=== PATIENT | male | born 1950 | race Caucasian/White ===

== ENCOUNTER 2020-08-10 08:02 | Observation (INO) ==
--- NOTE | 2020-07-17 15:24 | PAT Medication Instructions ---
Medication Instructions Date of Service July 17, 2020 Home Medications Medication Instructions Recorded Walking Cane #1 ea 06/25/20 Wheeled Walker #1 ea 06/25/20 Sweeteze 1 cap PO BID ascorbic acid (vitamin C) [Vitamin C] 500 mg PO DAILY cholecalciferol (vitamin D3) Vitamin D3 125 mcg PO DAILY fexofenadine/Brii 180 mg PO QAM glucosamine-chondroitin/Osteo Bi-Flex 1 tab PO BID lactobacillus combination no.4/Probiotic 3,000 mmu cells PO DAILY multivit with min-folic acid/Centrum Adult 50 Fresh-Fruity 1 tab PO DAILY naproxen sodium/Aleve 220 mg PO BID omega-3 fatty acids /Fish Oil 1,000 mg PO DAILY psyllium husk /Metamucil 1 tbsp PO QAM ASK your surgeon for instructions naproxen sodium/Aleve 220 mg PO BID STOP taking 2 weeks before surgery (or as soon as possible if surgery is within 2 weeks) Sweeteze 1 cap PO BID glucosamine-chondroitin/Osteo Bi-Flex 1 tab PO BID omega-3 fatty acids /Fish Oil 1,000 mg PO DAILY DO NOT take the morning of surgery ascorbic acid (vitamin C) [Vitamin C] 500 mg PO DAILY cholecalciferol (vitamin D3) Vitamin D3 125 mcg PO DAILY fexofenadine/Brii 180 mg PO QAM lactobacillus combination no.4/Probiotic 3,000 mmu cells PO DAILY multivit with min-folic acid/Centrum Adult 50 Fresh-Fruity 1 tab PO DAILY psyllium husk /Metamucil 1 tbsp PO QAM Other Notes If you have any questions please call us at [phone] or [phone] or [phone] or [phone]
--- NOTE | 2020-07-21 11:45 | Anesthesiology Consultation ---
Date of Service July 21, 2020 Assessment & Plan (1) Encounter for pre-operative examination: COVID screening: Per assessment on 07/21: Travel screen negative x 1 month. No known COVID-19 positive contacts or current COVID-19 related symptoms. Surgeon arranging preop COVID testing. Awaiting results. Chart Review Chart Review: Acceptable Risk for Surgery (evaluation AM DOS) and Patient seen in Pre Admission Testing Teaching & Discussion Pre-Anesthesia Teaching/Discussion Notes: Instructed NPO after midnight before surgery,except medications with 15 cc of water. Medication instructions provided according to the PAT guidelines. History Surgery Operation Date: 08/10/20 09:20 Proposed Procedures p Right Total Knee Arthroplasty - Malik Maxwell DO Height/Weight Height: 5 ft 11 in Weight: 111.3 kg Allergies Allergy/AdvReac Type Severity Reaction Status Date / Time No Known Allergies Allergy Verified 06/23/20 13:37 Medications Home Medications Medication Instructions Recorded Confirmed Last Taken Sweeteze 1 cap PO BID 06/23/20 06/23/20 Unknown ascorbic acid (vitamin C) [Vitamin 500 mg PO DAILY 06/23/20 06/23/20 Unknown C] cholecalciferol (vitamin D3) 125 mcg PO DAILY 06/23/20 06/23/20 Unknown [Vitamin D3] fexofenadine [Brii] 180 mg PO QAM 06/23/20 06/23/20 Unknown glucosamine-chondroitin [Osteo 1 tab PO BID 06/23/20 06/23/20 Unknown Bi-Flex] lactobacillus combination no.4 3,000 mmu cells PO DAILY 06/23/20 06/23/20 Unknown [Probiotic] multivit with min-folic acid 1 tab PO DAILY 06/23/20 06/23/20 Unknown [Centrum Adult 50 Fresh-Fruity] naproxen sodium [Aleve] 220 mg PO BID 06/23/20 06/23/20 Unknown omega-3 fatty acids [Fish Oil] 1,000 mg PO DAILY 06/23/20 06/23/20 Unknown psyllium husk [Metamucil] 1 tbsp PO QAM 06/23/20 06/23/20 Unknown Walking Cane #1 ea 06/25/20 Unknown Wheeled Walker #1 ea 06/25/20 Unknown Past Medical History Medical History Eczema Obesity Osteoarthritis Exercise / Class Metabolic Activity II 4-5 Yardwork/Stairs/Walk up hill Past Family History Family History Father Family hx of colon cancer Other Colorectal cancer No family history of adverse response to anesthesia Past Surgical History Surgical History History of arthroscopy Right knee History of colonoscopy [place] teeth removed Past Anesthesia History No Hx of Anesthesia Complications and No Family Hx of Anesthesia Complications History of PONV No Hx of PONV and Hx of Motion Sickness (remote hx (+ boats)) Social History Smoking Status: Never smoker Do You Dip or Chew Tobacco: No Hx Alcohol Use: No Hx Substance Use: No Review of Systems Patient denies chest pain, shortness of breath, dyspnea on exertion, fever, chills, cough, wheezing, palpitations. Physical Exam Vital Signs VITALS BP 179/109 > 158/94 on manual recheck Advised patient to have PCP/patient continue to monitor BPs. BPs high 120s-150s/80-90s per review of PCP records P 72 TEMP 99.0 SP02 95%RA RESP 18 PHYSICAL Full cervical extension range of motion. Full TMJ range of motion. TMD 3.5 finger breaths Mallampati Score 3 Dentition: missing molar Lungs: clear throughout to auscultation Cardiac: regular rate and rhythm, no murmurs noted Spine: normal Carotid arteries: negative bruit Extremities: no edema Testing Laboratory Results 07/21/20 12:28 07/21/20 12:28 PT 10.0 Seconds (9.0-12.0) 07/21/20 12:28 INR 1.0 (0.9-1.1) 07/21/20 12:28 APTT 25.7 Seconds (21.0-31.0) 07/21/20 12:28 Blood Type B Positive 07/21/20 12:28 Antibody Screen NEGATIVE 07/21/20 12:28 Electrocardiogram Date: 07/21/20 Normal sinus rhythm at 60 bpm. Incomplete right bundle branch block. Left anterior fascicular block. Reviewed PMHX, functional status, preop EKG with Dr Pal > he does not feel further cardiac evaluation and/or testing needed prior to surgery from his perspective. Chest X-Ray Date: 07/21/20 FINDINGS: Cardiac silhouette is mildly enlarged. No pneumothorax, pleural effusion, airspace consolidation or overt pulmonary edema. Bones of the chest appear grossly intact. IMPRESSION: No acute process.
[2020-07-21 12:53] LABS: Basophils # (auto) 0.03 K/uL (0-0.2); Basophils % (auto) 0.5 %; Eosinophils % (auto) 1.8 %; Hematocrit (blood only) 44.3 % (42-52); Hemoglobin 16.4 g/dL (14.0-18.0); Immature Granulocytes # (auto) 0.02 K/uL (0.00-0.02); Immature Granulocytes % (auto) 0.4 %; Lymphocytes # (auto) 1.43 K/uL (1.2-3.4); Lymphocytes % (auto) 25.1 %; Mean Corpuscular Hemoglobin 31.6 pg (25-34); Mean Corpuscular Volume 85.4 fL (80-100); Mean Platelet Volume 10.4 fL (7.4-10.4); Monocytes # (auto) 0.33 K/uL (0.11-0.59); Monocytes % (auto) 5.8 %; Neutrophils # (auto) 3.79 K/uL (1.4-6.5); Neutrophils % (auto) 66.4 %; Platelet Count 198 K/uL (130-400); RDW Coefficient of Variation 12.3 % (11.5-14.5); RDW Standard Deviation 38.7 fL (36.4-46.3); Red Blood Count 5.19 M/uL (4.7-6.1)
--- NOTE | 2020-07-21 12:54 | XRay Report ---
XR chest Pre-admission PA/Lat HISTORY: 70 years-old Male pat chronic degenerative joint disease COMPARISON: None TECHNIQUE: PA and lateral views of the chest FINDINGS: Cardiac silhouette is mildly enlarged. No pneumothorax, pleural effusion, airspace consolidation or o vert pulmonary edema. Bones of the chest appear grossly intact. IMPRESSION: No acute process. ACT 112: Negative or not required by law. The above report was generated using voice recognition software. It may contain grammatical, syntax o r spelling errors. Electronically signed by: José Miguel Garcia M.D. 07/21/2020 12:53 PM
[2020-07-21 13:07] LABS: Partial Thromboplastin Time 25.7 Seconds (21.0-31.0)
[2020-07-21 16:26] LABS: BUN Creatinine Ratio 16.6 (10-20); Calcium 9.5 mg/dl (8.5-10.1); Creatinine Clr Calc Pharmacy 84.6 ml/min; Est GFR (African American) 83.2; Est GFR (Non-African American) 71.8; Potassium 4.1 mmol/L (3.5-5.1)
--- NOTE | 2020-07-22 06:44 | Electrocardiogram Report ---
Test Reason : Blood Pressure : / mmHG Vent. Rate : 060 BPM Atrial Rate : 060 BPM P-R Int : 122 ms QRS Dur : 092 ms QT Int : 414 ms P-R-T Axes : 068 -61 051 degrees QTc Int : 414 ms Normal sinus rhythm Incomplete right bundle branch block Left anterior fascicular block Abnormal ECG No previous ECGs available Confirmed by Floyd Birmingham ([id number]) on 07/22/2020 6:44:01 AM Referred By: Malik Maxwell Confirmed By:Floyd Birmingham
--- NOTE | 2020-08-10 06:40 | History & Physical Report ---
Date of Service August 10, 2020 Assessment & Plan (1) Osteoarthritis of right knee: We will proceed with a right total knee arthroplasty. Postoperatively he will be started on aspirin for DVT prophylaxis and kept overnight in the hospital for postoperative medical management. He plans to use home health upon discharge. History of Present Illness Chief Complaint: Osteoarthritis of the right knee. Primary Care Provider: Rob Garcia MD Bryon is a pleasant 70-year-old male who is been dealing with chronic increasing right knee pain. He has a history of a right knee arthroscopy done about 20 years ago. X-rays and clinical examination have been diagnostic for advanced osteoarthritis of the right knee. After failing conservative treatme nt, he has elected to proceed with a right total knee arthroplasty.. Allergies Allergy/AdvReac Type Severity Reaction Status Date / Time No Known Allergies Allergy Verified 06/23/20 13:37 Home Medications Medication Instructions Recorded Confirmed Type Sweeteze 1 cap PO BID 06/23/20 06/23/20 History ascorbic acid (vitamin C) [Vitamin 500 mg PO DAILY 06/23/20 06/23/20 History C] cholecalciferol (vitamin D3) 125 mcg PO DAILY 06/23/20 06/23/20 History [Vitamin D3] fexofenadine [Brii] 180 mg PO QAM 06/23/20 06/23/20 History glucosamine-chondroitin [Osteo 1 tab PO BID 06/23/20 06/23/20 History Bi-Flex] lactobacillus combination no.4 3,000 mmu cells PO DAILY 06/23/20 06/23/20 History [Probiotic] multivit with min-folic acid 1 tab PO DAILY 06/23/20 06/23/20 History [Centrum Adult 50 Fresh-Fruity] naproxen sodium [Aleve] 220 mg PO BID 06/23/20 06/23/20 History omega-3 fatty acids [Fish Oil] 1,000 mg PO DAILY 06/23/20 06/23/20 History psyllium husk [Metamucil] 1 tbsp PO QAM 06/23/20 06/23/20 History Walking Cane #1 ea 06/25/20 Rx Wheeled Walker #1 ea 06/25/20 Rx Past Med/Surg History Medical History Eczema Obesity Osteoarthritis Surgical History History of arthroscopy Right knee History of colonoscopy [place] teeth removed Family History Father Family hx of colon cancer Other Colorectal cancer No family history of adverse response to anesthesia Social History Smoking Status: Never smoker Second Hand Exposure: No; Do You Dip or Chew Tobacco: No; Hx Alcohol Use: No Hx Substance Use: No Preferred Language: [place] Required: No Beliefs That Will Affect Care: None Current Living Situation: Spouse Feels Safe at Home: Yes Safety Concerns: Feels Safe At This Time Assistive Devices: Glasses Review of Systems All systems reviewed & are unremarkable except as noted in HPI & below. Physical Exam On physical examination of the right knee, he ambulates independently. He has good motion of 0 to 120 degrees. He has no instability. He has pain over the distal medial femoral condyle and over the medial joint line.. Constitutional WD/WN, vitals as above Eyes PERRL, conjunctivae normal, anicteric sclerae ENMT external ear and nose normal, oropharynx normal Neck trachea midline, no thyromegaly Respiratory normal respiratory effort Cardiovascular RRR, no murmur, no edema Gastrointestinal (Abdomen) normal bowel sounds, soft, nontender, no hepatosplenomegaly Psychiatric A+Ox3, euthymic affect Results & Data Results & Data Laboratory Results . Diagnostic Findings X-rays of the right knee do show advanced osteoarthritis with joint space narrowing, osteophyte formation, and [id number] articulation. PG Care Time/CCT Total # of Minutes Spent Total Time Spent with Patient: Total time spent is greater than 50% in coordination of care (as documented) at patient's floor/unit and/or counseling patient: Coding Level of Care Code None Diagnoses Osteoarthritis of right knee M17.11
[~2020-08-10 08:02] MED LIST: ACETAMINOPHEN 500 MG TAB PO SCH; FAMOTIDINE 20 MG TAB PO SCH; GABAPENTIN 300 MG CAP PO SCH; LR 500ML BOLUS, THEN 15ML/HR IV SCH; LR 60ML/HR IV SCH; ROPIVACAINE 0.5% HCL/PF 150 MG, BUPIVACAINE 0.75% MPF 20 ML, EPINEPHrine 30MG/30ML (OR ... INFIL SCH; TRANEXAMIC ACID 1,000 MG **IV Intra-op IV SCH; TRANEXAMIC ACID 1,000 MG **IV Pre-op IV SCH; ceFAZolin 2000MG 2,000 MG/15 ML SYR IV SCH; dexAMETHasone 4 MG TAB PO SCH
[2020-08-10] MEDS ORDERED: BUPIVACAINE 0.5 % 5 MG/1 ML PF 10ML VIAL ONE (08:06)
[2020-08-10] MEDS ORDERED: ONDANSETRON INJ 2 MG/ML 2 ML VIAL IV PRN ×2 (09:46→14:01)
[2020-08-10] MEDS ORDERED: ePHEDrine sulfate 50 MG/ML AMP IV PRN (09:46)
[2020-08-10] MEDS ORDERED: ATROPINE SULFATE 0.1 MG/ML 10ML SYR IV PRN (09:46)
[2020-08-10] MEDS ORDERED: fentaNYL citrate 100 MCG/2 ML VIAL IV PRN (09:46)
[2020-08-10] MEDS ORDERED: MIDAZOLAM HCL 1 MG/ML 2ML VIAL ONE (09:48)
[2020-08-10] MEDS ORDERED: fentaNYL citrate 100 MCG/2 ML VIAL ONE (09:48)
[2020-08-10] MEDS ORDERED: ePHEDrine sulfate 50 MG/ML AMP ONE (10:17)
[2020-08-10] MEDS ORDERED: PHENYLEPHRINE HCL 10 MG/ML VIAL ONE (10:17)
[2020-08-10] MEDS ORDERED: PROPOFOL IV EMULSION 10 MG/ML 20 ML VIAL IV ONE (10:17)
[2020-08-10] MEDS ORDERED: ORTHO JOINT ANESTHETIC ONE (10:30)
--- NOTE | 2020-08-10 12:17 | Operative Report ---
PG Post Operative Report Pre & Post Diagnosis Operation Date: 08/10/20 10:40 Pre-Op Diagnosis: Right Knee Degenerative Joint Disease Post-Op Diagnosis: Right Knee Degenerative Joint Disease I identified the patient and participated in the time-out.: Yes Procedure Operation Date: 08/10/20 10:40 Actual Procedures p Right Total Knee Arthroplasty, Cemented(Right) - Malik Maxwell DO Surgeon Malik Maxwell DO Steam Shovel Engineer Malik Vanegas PAC Estimated Blood Loss 10 Findings Consistent with Post-Op Diagnosis Specimens Right femoral and tibial bone Complications none Disposition Disposition: Recovery Room Indications Bryon is a pleasant 70-year-old male who is been ill with chronic increasing right knee pain. X-rays and clinical examination were diagnostic for advanced osteoarthritis of the right knee. After failing extensive conservative treatment, he elected proceed with a right total knee arthroplasty. Description of Procedure Implants used: I used a Stephany Persona total knee arthroplasty system with a size 11 standard femur, G tibia, 35 patella, and a size 10 medial congruent polyethylene bearing. All components were cemented in place with Simplex HV cement. Bryon arrived [facility] for the above procedure. He was seen in the preoperative holding area and the operative extremity was identified and signed. He was given a preoperative antibiotic, TXA, a spinal anesthetic and an adductor nerve block. He was taken back to the operating room and laid on the table in supine position. He was given basic sedation. The operative knee was then prepped and draped in sterile fashion. A timeout was done, and the patient and the operative extremity was properly identified. A midline incision was made directly over the patella. Dissection was taken deb n to the extensor mechanism. A subvastus arthrotomy was used. The medial retinaculum was released and the fat pad was mostly excised. The knee was flexed and the ACL, PCL, and meniscus were removed. A drill was sent down the center of the femoral canal followed by an intramedullary maria esther. Off that maria esther a distal femoral cutting block was placed. 9 mm was resected off the distal femur at 5 of valgus. A posterior referencing AP sizing guide was then placed on the distal femur. The femur measured to be a size 11. 2 drill holes were placed in 3 of external rotation. A 4-in-1 cutting block was then impacted into place. Anterior, posterior, and chamfer cuts were then made. The proximal tibia was then exposed. An external tibial alignment guide was placed. A tibial cut guide was then anchored in place and the proximal tibia was then resected. The posterior aspect of the knee was then opened up and any additional meniscus fragments and osteophytes were removed. The tibia measured to be a size G. The tibial plate was then placed in the appropriate rotation and the tibia was drilled and punched. Trial components were then placed. I used a size 10 medial congruent polyethylene insert. The knee was brought through a full range of motion and felt to be stable. The peg holes for the femoral component were then drilled. The patella was then everted and 9 mm was resected off the posterior aspect of the patella. The patella measured to be a size 35. 3 peg holes were then drilled. A trial patella was placed. The knee was once again brought through a full range of motion and felt to be stable. Trial components were then removed. The surrounding soft tissues were injected with 100 cc of an orthopedic pain control cocktail. All components were then cemented into place with Simplex HV cement. The final polyethylene insert was then snapped into place. Once cement was dry the tourniquet was deflated. Hemostasis was obtained. A dilute betadyne lavage was then done for 3 minutes. The joint was then irrigated with normal saline solution. The subvastus arthrotomy was then closed with #1 Vicryl suture. The skin was closed with 2-0 Vicryl, 3-0V lock suture, and teofilo. A Silverlon and a soft compressive dressing were placed. He was then transferred to a hospital bed and taken to the postanesthesia care unit in stable condition. He tolerated the procedure well. Malik Vanegas PA-C, was present for the entire procedure. He was critical for patient positioning, prepping, draping, retraction exposure, wound closure and application of sterile dressing. I attest to the content of the Intraoperative Record and any orders documented therein. Any exceptions are noted below.
--- NOTE | 2020-08-10 12:59 | XRay Report ---
XR knee RT 1 or 2V routine HISTORY: 70 years-old Male post op right knee total joint arthroplasty COMPARISON: Knee radiographs 08/09/2019 TECHNIQUE: 3 views the right knee FINDINGS: Right knee total joint arthroplasty and patella resurfacing. Satisfactory alignment without acute fra cture or unexpected opaque foreign body. Anterior midline skin teofilo are present along with expecte d postsurgical soft tissue swelling and deep tissue air. IMPRESSION: Right knee total joint arthroplasty with expected postoperative changes. ACT 112: Negative or not required by law. The above report was generated using voice recognition software. It may contain grammatical, syntax o r spelling errors. Electronically signed by: José Miguel Garcia M.D. 08/10/2020 12:58 PM
--- NOTE | 2020-08-10 13:28 | Anesthesiology Progress Note ---
Date of Service August 10, 2020 Anesthesia Post Procedure Vital Signs Vital Signs: Temp Pulse Pulse Resp BP Pulse Ox 08/10/20 13:15 97.5 F L 72 18 140/79 95 08/10/20 13:06 97.5 F L 72 18 129/86 96 08/10/20 12:55 73 19 108/80 96 08/10/20 12:45 76 18 121/80 93 08/10/20 12:35 78 20 142/77 H 98 08/10/20 12:27 97.3 F L 82 16 123/64 98 08/10/20 08:58 98.2 F 75 20 182/103 H 96 Pain Intensity Right Knee: Pain Intensity: 2 Transfer of Care Handoff Completed per policy Notes Mental Status: alert / awake / arousable and participated in evaluation Patient Amnestic to Procedure: Yes Nausea / Vomiting: adequately controlled Pain: adequately controlled Airway Patency, RR, SpO2: stable & adequate BP & HR: stable & adequate Hydration State: stable & adequate Neuraxial Anesthesia: was administered and sensory block is resolving Anesthetic Complications: no major complications apparent and Pt Satisfied with anesthetic care
[2020-08-10] MEDS ORDERED: bisacodyL 10 MG SUPP PR PRN (14:01)
[2020-08-10] MEDS ORDERED: METOCLOPRAMIDE HCL INJ 5 MG/ML 2 ML VIAL IV PRN (14:01)
[2020-08-10] MEDS ORDERED: NALOXONE HCL 0.4 MG/1 ML VIAL/CARP IV PRN (14:01)
[2020-08-10] MEDS ORDERED: HYDROmorphone INJ 0.5 MG/0.5 ML SYR IV PRN (14:01)
[2020-08-10] MEDS ORDERED: MAGNESIUM HYDROXIDE SUSP 30 ML UDC PO PRN (14:01)
[2020-08-10] MEDS: ACETAMINOPHEN 500 MG TAB PO SCH ×2 (16:26→21:46)
[2020-08-10] MEDS: SODIUM CHLORIDE 0.9% 1000ML 1,000 ML IV SCH (16:27)
[2020-08-10] MEDS: KETOROLAC TROMETHAMINE 15 MG/ML VIAL IV SCH ×2 (16:29→20:29)
[2020-08-10] MEDS: ceFAZolin 2000MG 2,000 MG/15 ML SYR IV SCH (18:09)
[2020-08-10] MEDS: DOCUSATE SODIUM 100 MG CAP PO SCH (20:29)
[2020-08-10] MEDS: ASPIRIN 81 MG ECTAB PO SCH (20:29)
[2020-08-10] MEDS ORDERED: SENNA 8.6 MG TAB PO SCH (21:00)
[2020-08-10] MEDS: oxyCODONE HCL IR 5 MG TAB (IMMEDIATE RELEASE) PO PRN (21:49)
[2020-08-11] MEDS: SODIUM CHLORIDE 0.9% 1000ML 1,000 ML IV SCH (01:37)
[2020-08-11] MEDS: KETOROLAC TROMETHAMINE 15 MG/ML VIAL IV SCH ×2 (02:05→08:33)
[2020-08-11] MEDS: ceFAZolin 2000MG 2,000 MG/15 ML SYR IV SCH (02:06)
[2020-08-11] MEDS: oxyCODONE HCL IR 5 MG TAB (IMMEDIATE RELEASE) PO PRN (05:56)
[2020-08-11] MEDS: ACETAMINOPHEN 500 MG TAB PO SCH (05:57)
--- NOTE | 2020-08-11 06:49 | Orthopedic Progress Note ---
Date of Service August 11, 2020 Assessment & Plan (1) Status post right knee replacement: Overall he is doing well. Is not any much pain in the right knee. He will be seen by physical therapy this morning for ambulation and range of motion exercises. He is on aspirin for DVT prophylaxis. The dressing can be changed after physical therapy today. He can be discharged home later today. He will follow-up with orthopedics in 2 weeks. Linn Slater was seen and examined at bedside this morning. Overall he is doing well. Is not having much pain in the right knee. He was able to get some sleep last night. He has no complaints.. Review of Systems All systems reviewed & are unremarkable except as noted in HPI & below. Physical Exam On physical examination of the right knee, the dressing is clean and dry. He is able to sit at bedside with his knee flexed almost to 90 degrees. He has active dorsiflexion plantarflexion of his right ankle.. Results & Data Results & Data Laboratory Results . Diagnostic Findings Postoperative x-rays of the right knee show the prosthesis to be in anatomic alignment without any evidence of fracture, dislocation, or loosening. PG Care Time/CCT Total # of Minutes Spent Total Time Spent with Patient: Total time spent is greater than 50% in adoption coordinator rdination of care (as documented) at patient's floor/unit and/or counseling patient: Coding Level of Care Code 26374 Post Operative Follow-Up Diagnoses Status post right knee replacement Z96.651
--- NOTE | 2020-08-11 06:50 | Discharge Summary ---
Date of Service August 11, 2020 Admission HPI (Per Admitting) Bryon is a pleasant 70-year-old male who is been dealing with chronic increasing right knee pain. He has a history of a right knee arthroscopy done about 20 years ago. X-rays and clinical examination have been diagnostic for advanced osteoarthritis of the right knee. After failing conservative treatment, he has elected to proceed with a right total knee arthroplasty.. Admission Exam (Per Admitting) On physical examination of the right knee, he ambulates independently. He has good motion of 0 to 120 degrees. He has no instability. He has pain over the distal medial femoral condyle and over the medial joint line.. Principal Diagnosis Same as "Discharge Diagnosis" noted below under Discharge Instructions. Discharge Exam On physical examination of the right knee, the dressing is clean and dry. He is able to sit at bedside with his knee flexed almost to 90 degrees. He has active dorsiflexion plantarflexion of his right ankle.. Discharge Data Procedures Performed Operation Date: 08/10/20 10:40 Actual Procedures p Right Total Knee Arthroplasty, Cemented(Right) - Malik Maxwell DO Ordered Studies 08/10/20 05:00 US - OR guided needle placemen Routine Hospital Course (1) Status post right knee replacement: On August 10, 2020 Bryon arrived at [facility] and underwent a right knee replaced without complication. He had a spinal anesthetic. Postoperatively he was started on aspirin for DVT prophylaxis and transferred to the general orthopedic floors. His hospital course was uneventful. On postop day #1 his vital signs were stable and his pain was well controlled. He was able to participate well with physical therapy doing ambulation and range of motion exercises. He was then discharged home. He will follow-up with orthopedics in 2 weeks. PG Care Time/CCT Total # of Minutes Spent Total Time Spent with Patient: Total time spent is greater than 50% in coordination of care (as documented) at patient's floor/unit and/or counseling patient: Discharge Plan Discharge Items Patient Disposition: Home - Home Health Services Reason For Visit: Right Knee Degenerative Joint Disease Discharge Diagnosis: Right knee replacement Activity: As commented below Non-emergency contact: Surgeon Call non-emergency contact if: your wound has increased redness and your wound has increased drainage Follow-up/Referrals: Rob Garcia MD [Primary Care Provider] - Diet: Regular Addtl Attending Provider Instructions: Activity and Therapy Recommendations: * If you are using [facility] then therapy will be provided at your home until they feel you have accomplished all of your goals. * If you are using [facility] then Physical Therapy will be provided until they feel you are ready to start Outpatient Physical Therapy. * If you are not using home therapy then Outpatient Physical Therapy should start about 3-5 days from your day of surgery. Therapy will last about 6-10 weeks * It is important not to put a pillow under your knee when you are relaxing or sleeping. It is just as important to make sure you are getting your knee perfectly straight as it is to regain your knee bend. * You were shown a series of exercises in the hospital. Do these exercises three times each day including the exercises you were shown in physical therapy. * Get up and walk several times each day. For the first four weeks, try not to stand or walk for more than one hour at a time. If you do stand or walk for more than one hour, you will not hurt anything, but your leg will likely swell. * As you feel comfortable, you may change from the walker or crutches to a cane and then to independent walking. Medications: * Narcotic You will likely be sent home from the hospital with a prescription for the narcotic pain medication that worked best throughout your stay. * Aspirin Most patients will be required to take Aspirin 81mg twice a day for 6 weeks after surgery. This is obtained [id number] and a prescription is not necessary. * Other medications may be prescribed for specific circumstances. If you have any questions, please call the office at . * Resume previous home medications unless otherwise instructed TEDs/Elastic Stockings: The white elastic stockings help limit swelling and prevent blood clots from forming in your legs.~ The more you wear them, the more they work. Wear them for six weeks. Dressing Care: You may change the dressing after therapy on postop day #1. If the incision is not draining then you may leave the teofilo open to air. If there is a little bit of drainage or if the teofilo are getting stuck on your clothing then cover the incision with a dry dressing. The teofilo will be removed at your 2 week follow-up appointment. Showering: You may shower 5 days after day of surgery. You may shower with the teofilo exposed. Let soapy water run over the teofilo and pat them dry. Do not scrub or soak the incision. Things To Watch For: * Drainage from the incision site that occurs more than one week after your surgery. * Increased redness at the incision site. * Fever above 102 degrees Fahrenheit. * Unusual chest pain or shortness of breath. * Call [facility] at with any of the above problems Follow-Up Visit: Follow-up with Dr. Maxwell's PA (Malik Vanegas) 2-3 weeks after your day of surgery. He will remove your teofilo and answer any questions. If you have any additional questions or concerns, Dr Maxwell is usually in the office at the same time and will be available An appointment was probably scheduled when you signed-up for surgery in the office. If you have any questions call Office Instructions: More detailed instructions as well as Frequently Asked Questions were provided in a folder by our office when you signed-up for surgery. Please review these instructions when you get home. If you have any further questions or concerns, please feel free to call the office at [phone] Pending Studies at Discharge: No Stand-Alone Forms: [facility], Smoking Cessation Medications and DC Order Prescriptions: New oxycodone 5 mg Tablet 5 mg PO Q4H PRN (Reason: pain) Qty: 60 RF: 0 aspirin 81 mg Tablet,Delayed Release (Dr/Ec) 81 mg PO BID 42 Days Qty: 84 RF: 0 Continued (DME) Wheeled Walker Misc See Rx Instructions .MEDSUPPLY Qty: 1 RF: 0 (DME) Walking Cane Misc See Rx Instructions .MEDSUPPLY Qty: 1 RF: 0 fexofenadine [Brii] 180 mg Tablet 180 mg PO QAM RF: 0 ascorbic acid (vitamin C) [Vitamin C] 500 mg Tablet 500 mg PO DAILY RF: 0 glucosamine-chondroitin [Osteo Bi-Flex] 250-200 mg Tablet 1 tab PO BID RF: 0 Fish Oil Capsule 1,000 mg PO DAILY RF: 0 cholecalciferol (vitamin D3) [Vitamin D3] 125 mcg (5,000 unit) Tablet 125 mcg PO DAILY RF: 0 naproxen sodium [Aleve] 220 mg Capsule 220 mg PO BID RF: 0 Probiotic 3 billion cell Capsule 3,000 mmu cells PO DAILY RF: 0 Metamucil 3.4 gram/5.4 gram Powder 1 tbsp PO QAM RF: 0 Centrum Adult 50 Fresh-Fruity 120 mcg Tablet,Chewable 1 tab PO DAILY RF: 0 Sweeteze 1 cap PO BID RF: 0 Discharge Orders: Discharge Order (Routine); Ordered 08/11/20 Ordered By: Malik Maxwell Admission Data Admit Date/Time: 08/10/20 12:31 Attending Provider: Malik Maxwell Admit Provider: Malik Maxwell Primary Care Provider: Rob Garcia
[2020-08-11] MEDS ORDERED: dexAMETHasone 4 MG TAB PO SCH (08:00)
[2020-08-11] MEDS: DOCUSATE SODIUM 100 MG CAP PO SCH (08:32)
[2020-08-11] MEDS: ASPIRIN 81 MG ECTAB PO SCH (08:32)
[2020-08-11] MEDS ORDERED: MULTIVITAMIN TAB PO SCH (09:00)
== END 2020-08-11 11:42 | disposition home health service (06) ==
LOC: 3E 08:02 → ASU 08:02